=== PATIENT | male | born 1975 | race African-American/Black ===

== ENCOUNTER 2017-12-16 16:24 | Emergency (ER) | payer OTHER ==
[~2017-12-16] VITALS: Ht 180.3 cm; Wt 100.0 kg
[2017-12-16] MEDS ORDERED: IBUPROFEN 800 MG TABLET PO ONE (16:45)
[2017-12-16 16:56] VITALS: BP 129/90
== END 2017-12-16 16:56 | disposition home or self-care (01) ==
LOC: EMS 16:24
DX: S50.12XA Contusion of left forearm, initial encounter (principal); V43.52XA Car driver injured in collision with other type car in traffic accident, initial encounter; Y93.89 Activity, other specified; Y92.89 Other specified places as the place of occurrence of the external cause; Y99.8 Other external cause status
CPT/HCPCS: 99282; 99283

== ENCOUNTER 2019-06-06 14:31 | Emergency (ER) | payer SELFPAY ==
[~2019-06-06] VITALS: Ht 180.3 cm; Wt 100.0 kg
[2019-06-06] MEDS ORDERED: IBUPROFEN 800 MG TABLET PO ONE (15:15)
[2019-06-06] MEDS ORDERED: ACETAMINOPHEN 500 MG TABLET PO ONE (15:15)
[2019-06-06] MEDS ORDERED: HYDROCODONE/ACETAMINOPHEN 5-325 MG TABLET PO ONE (17:00)
[2019-06-06] MEDS ORDERED: LIDOCAINE 1% 10 ML VIAL INJ ONE (17:45)
[2019-06-06] MEDS ORDERED: KETOROLAC TROMETHAMINE 30 MG/ML VIAL IM ONE (19:45)
[2019-06-06 20:09] VITALS: BP 155/80
== END 2019-06-06 20:49 | disposition home or self-care (01) ==
LOC: EMS 14:32
DX: S63.064A Dislocation of metacarpal (bone), proximal end of right hand, initial encounter (principal); M25.521 Pain in right elbow; I10 Essential (primary) hypertension; W22.01XA Walked into wall, initial encounter; Y93.89 Activity, other specified; Y92.89 Other specified places as the place of occurrence of the external cause; Y99.8 Other external cause status
CPT/HCPCS: 26670; 73080; 73110; 73130; 96372; 99284; J1885; J3490

== ENCOUNTER 2022-08-17 01:29 | Emergency (ER) | payer OTHER ==
[~2022-08-17] VITALS: Ht 180.3 cm; Wt 93.2 kg
[2022-08-17] MEDS ORDERED: KETOROLAC TROMETHAMINE 30 MG/ML VIAL IM ONE (02:00)
[2022-08-17] MEDS ORDERED: TRAM-559 PO (03:30)
[2022-08-17] MEDS ORDERED: HYDROCODONE/ACETAMINOPHEN 5-325 MG TABLET PO ONE (03:45)
[2022-08-17 04:08] VITALS: BP 142/75
== END 2022-08-17 04:16 | disposition home or self-care (01) ==
LOC: EMS 01:30
DX: S62.609A Fracture of unspecified phalanx of unspecified finger, initial encounter for closed fracture (principal); I10 Essential (primary) hypertension; F17.210 Nicotine dependence, cigarettes, uncomplicated; X58.XXXA Exposure to other specified factors, initial encounter; Y93.67 Activity, basketball; Y92.89 Other specified places as the place of occurrence of the external cause; Y99.8 Other external cause status
CPT/HCPCS: 99283; 73130; 29130; 96372; J1885

== ENCOUNTER 2022-08-26 21:33 | Inpatient (IN) | payer MEDICAID, OTHER ==
[~2022-08-26] VITALS: Ht 177.8 cm; Wt 80.9 kg
[~2022-08-26 21:33] MED LIST: TRAM-559 PO
[2022-08-26 22:53] LABS: AMPHET/METH SCREEN,URINE POSITIVE (NEGATIVE); BARBITURATE SCREEN, URINE NEGATIVE (NEGATIVE); BENZODIAZEPINES SCREEN,URINE NEGATIVE (NEGATIVE); CANNABINOID SCREEN,URINE NEGATIVE (NEGATIVE); COCAINE SCREEN,URINE NEGATIVE (NEGATIVE); METHADONE SCREEN, URINE NEGATIVE (NEGATIVE); OPIATE SCREEN,URINE NEGATIVE (NEGATIVE); PHENCYCLIDINE SCREEN,URINE NEGATIVE (NEGATIVE)
[2022-08-26 23:06] LABS: BASOPHILS % (AUTO) 0.8 % (0.0-2.0); EOSINOPHILS % (AUTO) 2.5 % (1.0-6.0); HEMATOCRIT 42.7 % (41-53); HEMOGLOBIN 13.3 g/dL (13.5-17.5); LYMPHOCYTES # (AUTO) 3.6 K/uL (1.0-4.8); LYMPHOCYTES % (AUTO) 48.6 % (22.0-44.0); MEAN CORPUSCULAR HEMOGLOBIN 24.9 pg (26.0-34.0); MEAN CORPUSCULAR HGB CONC 31.2 G/dL (31.0-37.0); MEAN CORPUSCULAR VOLUME 80 fL (80-100); MONOCYTES # (AUTO) 0.6 K/uL (0.1-1.0); NEUTROPHILS % (AUTO) 40.1 % (40.0-70.0); PLATELET COUNT (AUTO) 221 K/uL (150-450); RED BLOOD CELL COUNT(AUTO) 5.35 MIL/uL (4.50-5.90); RED CELL DISTRIBUTION WIDTH 14.1 % (11.5-14.5)
[2022-08-26] MEDS ORDERED: LORazepam 2 MG TABLET PO PRN (23:15)
[2022-08-26] MEDS ORDERED: HALOPERIDOL 5 MG TABLET PO PRN (23:15)
[2022-08-26] MEDS ORDERED: ZOLPIDEM TARTRATE 10 MG TABLET PO PRN (23:15)
[2022-08-26 23:19] LABS: ANION GAP 10 mmol/L (8-16); CALCIUM, TOTAL 9.2 mg/dL (8.8-10.5); CARBON DIOXIDE 26 mmol/L (22-29); CHLORIDE 104 mmol/L (98-107); CREATININE 0.93 mg/dL (0.60-1.30); GLOMERULAR FILTR. RATE CALC > 60 mL/min (>60); GLUCOSE,RANDOM 91 mg/dL (70-110); POTASSIUM 3.6 mmol/L (3.5-5.1); SODIUM SERUM 140 mmol/L (136-145); UREA NITROGEN, BLOOD 11 mg/dL (7-18)
[2022-08-26 23:24] LABS: ALANINE AMINOTRANSFERASE 23 U/L (12-78); ALBUMIN 3.7 g/dL (3.4-5.0); ALKALINE PHOSPHATASE 63 U/L (46-116); ASPARTATE AMINOTRANSFERASE 19 U/L (15-37); BILIRUBIN,TOTAL 0.2 mg/dL (0.1-1.0)
[2022-08-26 23:25] LABS: ACETAMINOPHEN < 2 mcg/mL (10-30)
[2022-08-26 23:49] LABS: COVID AG,FIA SOURCE NASAL SWAB
[2022-08-27] MEDS ORDERED: ALBUTEROL SULFATE HFA 90 MCG/PUFF 8 GM INHALER IH PRN (07:15)
[2022-08-27] MEDS ORDERED: IBUPROFEN 400 MG TABLET PO PRN (07:15)
[2022-08-27] MEDS ORDERED: ACETAMINOPHEN 325 MG TABLET PO PRN (07:15)
[2022-08-27] MEDS ORDERED: MAG HYDROX/AL HYDROX/SIMETH ES 30 ML SUSPENSION UDCUP PO PRN (07:15)
[2022-08-27] MEDS ORDERED: PETROLATUM,WHITE 28 GM JELLY TP PRN (07:15)
[2022-08-27] MEDS ORDERED: NICOTINE 14 MG/24 HOUR PATCH TD PRN (07:15)
[2022-08-27] MEDS ORDERED: GuaiFENesin/D-METHORPHAN [SUGAR-FREE] 200-20MG/10 ML SYRUP UDCUP PO PRN (07:15)
[2022-08-27] MEDS ORDERED: MAGNESIUM HYDROXIDE SUSPENSION 30 ML UDCUP PO PRN (07:15)
[2022-08-27] MEDS ORDERED: LOPERAMIDE HCL 2 MG CAPSULE PO PRN (07:15)
[2022-08-27] MEDS ORDERED: CloNIDine HCL 0.1 MG TABLET PO PRN (07:15)
[2022-08-27] MEDS ORDERED: ONDANSETRON HCL 4 MG TABLET PO PRN (07:15)
[2022-08-27] MEDS ORDERED: DOCUSATE SODIUM 100 MG CAPSULE PO PRN (07:15)
[2022-08-27 08:06] VITALS: BP 137/96
[2022-08-28 07:00] LABS: BASOPHILS % (AUTO) 0.8 % (0.0-2.0); EOSINOPHILS % (AUTO) 3.6 % (1.0-6.0); HEMATOCRIT 46.4 % (41-53); HEMOGLOBIN 14.6 g/dL (13.5-17.5); LYMPHOCYTES # (AUTO) 2.8 K/uL (1.0-4.8); LYMPHOCYTES % (AUTO) 49.2 % (22.0-44.0); MEAN CORPUSCULAR HGB CONC 31.5 G/dL (31.0-37.0); MEAN CORPUSCULAR VOLUME 80 fL (80-100); MONOCYTES # (AUTO) 0.6 K/uL (0.1-1.0); NEUTROPHILS % (AUTO) 35.4 % (40.0-70.0); PLATELET COUNT (AUTO) 221 K/uL (150-450); RED BLOOD CELL COUNT(AUTO) 5.83 MIL/uL (4.50-5.90); RED CELL DISTRIBUTION WIDTH 13.8 % (11.5-14.5)
[2022-08-28 07:31] LABS: ALANINE AMINOTRANSFERASE 20 U/L (12-78); ALBUMIN 3.5 g/dL (3.4-5.0); ALKALINE PHOSPHATASE 62 U/L (46-116); ANION GAP 5 mmol/L (8-16); ASPARTATE AMINOTRANSFERASE 15 U/L (15-37); BILIRUBIN,TOTAL 0.3 mg/dL (0.1-1.0); CALCIUM, TOTAL 9.1 mg/dL (8.8-10.5); CARBON DIOXIDE 28 mmol/L (22-29); CHLORIDE 105 mmol/L (98-107); CREATININE 0.91 mg/dL (0.60-1.30); GLOMERULAR FILTR. RATE CALC > 60 mL/min (>60); GLUCOSE,RANDOM 93 mg/dL (70-110); POTASSIUM 4.2 mmol/L (3.5-5.1); SODIUM SERUM 138 mmol/L (136-145); THYROID STIMULATING HORMONE 0.69 uIU/mL (0.36-3.74); UREA NITROGEN, BLOOD 10 mg/dL (7-18)
[2022-08-28 07:57] LABS: HEMOGLOBIN A1C 5.6 % (3.8-5.6)
[2022-08-28 08:31] LABS: CHOL/HDL RATIO 2.2 (4.2-7.3); CHOLESTEROL 133 mg/dL (131-200); HDL CHOLESTEROL 60 mg/dL (40-60); LDL CHOL (CALC.) 55 mg/dL (0-130); TRIGLYCERIDES 92 mg/dL (15-150)
[2022-08-28 08:51] VITALS: BP 152/95
[2022-08-28] MEDS ORDERED: LOSARTAN POTASSIUM 25 MG TABLET PO SCH (11:30)
[2022-08-28] MEDS ORDERED: LOSA-381 PO (13:22)
== END 2022-08-28 13:46 | disposition home or self-care (01) | DRG 751 ==
LOC: EMS 21:35 → 3EC 08-27 00:37
PROVIDERS: ADMIT Psychiatry & Neurology Psychiatry; ATTEND Psychiatry & Neurology Psychiatry
DX: F32.3 Major depressive disorder, single episode, severe with psychotic features (principal); R45.851 Suicidal ideations; F10.229 Alcohol dependence with intoxication, unspecified; F15.10 Other stimulant abuse, uncomplicated; G47.00 Insomnia, unspecified; I10 Essential (primary) hypertension; Z20.822 Contact with and (suspected) exposure to COVID-19; D64.9 Anemia, unspecified; Y90.5 Blood alcohol level of 100-119 mg/100 ml; Z59.00 Homelessness unspecified; Z87.891 Personal history of nicotine dependence; Z88.8 Allergy status to other drugs, medicaments and biological substances; Z71.51 Drug abuse counseling and surveillance of drug abuser
CPT/HCPCS: 80053; 80061; 80307; 83036; 84443; 85025; 93005; 99285; G0480; G0481

== ENCOUNTER 2023-04-29 22:41 | Emergency (ER) | payer MEDICAID, OTHER ==
[~2023-04-29] VITALS: Ht 180.3 cm; Wt 85.9 kg
[~2023-04-29 22:41] MED LIST changes: +LOSA-381 PO; -TRAM-559 PO
[2023-04-29 22:43] VITALS: BP 145/116; PULSE 100; RESP 16; TEMP 98.2
[2023-04-29] MEDS ORDERED: ACETAMINOPHEN 500 MG TABLET PO ONE (22:45)
[2023-04-29] MEDS ORDERED: BACITRACIN 0.9 GM PACKET OINTMENT TP ONE (22:45)
[2023-04-29] MEDS ORDERED: PERTUSS(ACELL),DIPH,TET VAC/PF 0.5 ML SYRINGE IM. ONE (22:45)
== END 2023-04-30 00:30 | disposition left against medical advice (07) ==
LOC: EMS 22:41
DX: S11.91XA Laceration without foreign body of unspecified part of neck, initial encounter (principal); F10.20 Alcohol dependence, uncomplicated; I10 Essential (primary) hypertension; F17.210 Nicotine dependence, cigarettes, uncomplicated; Z91.040 Latex allergy status; Y04.8XXA Assault by other bodily force, initial encounter; Y93.89 Activity, other specified; Y92.89 Other specified places as the place of occurrence of the external cause; Y99.8 Other external cause status
CPT/HCPCS: 12002; 70450; 71045; 72125; 90471; 90715; 99285

== ENCOUNTER 2023-06-13 05:51 | Emergency (ER) | payer OTHER ==
[~2023-06-13] VITALS: Ht 180.3 cm; Wt 93.2 kg
[2023-06-13 05:56] VITALS: BP 139/95; PULSE 96; RESP 18; TEMP 97.9
[2023-06-13] MEDS ORDERED: PERCT PO (06:24)
[2023-06-13] MEDS ORDERED: IBUP-1492 PO (06:24)
[2023-06-13] MEDS ORDERED: METH-659 PO (06:24)
[2023-06-13] MEDS: KETOROLAC TROMETHAMINE 60 MG/2 ML VIAL IM ONE (06:25)
[2023-06-13] MEDS: METHOCARBAMOL 500 MG TABLET PO ONE (06:26)
== END 2023-06-13 06:28 | disposition home or self-care (01) ==
LOC: EMS 05:52
DX: S39.012A Strain of muscle, fascia and tendon of lower back, initial encounter (principal); M25.561 Pain in right knee; R07.81 Pleurodynia; F17.210 Nicotine dependence, cigarettes, uncomplicated; F10.20 Alcohol dependence, uncomplicated; I10 Essential (primary) hypertension; Z91.040 Latex allergy status; X58.XXXA Exposure to other specified factors, initial encounter; Y93.89 Activity, other specified; Y92.89 Other specified places as the place of occurrence of the external cause; Y99.8 Other external cause status; Y90.9 Presence of alcohol in blood, level not specified
CPT/HCPCS: 99283; 96372; J1885

== ENCOUNTER 2023-11-17 15:03 | Emergency (ER) | payer OTHER ==
[~2023-11-17] VITALS: Ht 180.3 cm; Wt 75.0 kg
[~2023-11-17 15:03] MED LIST changes: +IBUP-1492 PO; +METH-659 PO; +PERCT PO
[2023-11-17 15:14] VITALS: BP 136/93; PULSE 98; RESP 18; TEMP 98
[2023-11-17] MEDS ORDERED: IBUP-1554 PO (16:40)
[2023-11-17] MEDS ORDERED: PENI500T2 PO (16:40)
[2023-11-17] MEDS ORDERED: HYDR-4062 PO (16:40)
[2023-11-17] MEDS: HYDROCODONE/ACETAMINOPHEN 5-325 MG TABLET PO ONE (16:42)
[2023-11-17] MEDS: IBUPROFEN 600 MG TABLET PO ONE (16:42)
== END 2023-11-17 16:55 | disposition home or self-care (01) ==
LOC: EMS 15:05
DX: K04.7 Periapical abscess without sinus (principal); F10.20 Alcohol dependence, uncomplicated; I10 Essential (primary) hypertension; F17.210 Nicotine dependence, cigarettes, uncomplicated; Z91.040 Latex allergy status
CPT/HCPCS: 99283

== ENCOUNTER 2023-12-11 15:16 | Emergency (ER) | payer OTHER ==
[~2023-12-11] VITALS: Ht 180.3 cm; Wt 93.1 kg
[~2023-12-11 15:16] MED LIST changes: +HYDR-4062 PO; -IBUP-1492 PO; +IBUP-1554 PO; -LOSA-381 PO; -METH-659 PO; +PENI500T2 PO; -PERCT PO
[2023-12-11 15:25] VITALS: TEMP 97.7
[2023-12-11] MEDS: ONDANSETRON HCL 4 MG/2 ML VIAL IVP ONE (16:13)
[2023-12-11] MEDS: HYDROmorphone HCL 2 MG/ML SYRINGE IVP ONE ×2 (16:13→18:43)
[2023-12-11] MEDS: SODIUM CHLORIDE 0.9% 1,000 ML IV ONE (16:16)
[2023-12-11 16:50] LABS: BASOPHILS % (AUTO) 0.3 % (0.0-2.0); EOSINOPHILS % (AUTO) 1.8 % (1.0-6.0); HEMATOCRIT 40.2 % (41-53); HEMOGLOBIN 12.6 g/dL (13.5-17.5); LYMPHOCYTES # (AUTO) 2.1 K/uL (1.0-4.8); MEAN CORPUSCULAR HEMOGLOBIN 24.7 pg (26.0-34.0); MEAN CORPUSCULAR HGB CONC 31.5 G/dL (31.0-37.0); MEAN CORPUSCULAR VOLUME 79 fL (80-100); MONOCYTES # (AUTO) 0.8 K/uL (0.1-1.0); MONOCYTES % (AUTO) 10.6 % (2.0-9.0); NEUTROPHILS # (AUTO) 4.5 K/uL (1.8-7.7); NEUTROPHILS % (AUTO) 59.3 % (40.0-70.0); PLATELET COUNT (AUTO) 204 K/uL (150-450); RED BLOOD CELL COUNT(AUTO) 5.11 MIL/uL (4.50-5.90); RED CELL DISTRIBUTION WIDTH 14.1 % (11.5-14.5); WHITE BLOOD COUNT (AUTO) 7.6 K/uL (4.5-11.0)
[2023-12-11 17:08] LABS: ANION GAP 6 mmol/L (8-16); CALCIUM, TOTAL 8.1 mg/dL (8.8-10.5); CARBON DIOXIDE 28 mmol/L (22-29); CHLORIDE 104 mmol/L (98-107); CREATININE 1.05 mg/dL (0.60-1.30); GLOMERULAR FILTR. RATE CALC > 60 mL/min (>60); GLUCOSE,RANDOM 103 mg/dL (70-110); POTASSIUM 3.7 mmol/L (3.5-5.1); SODIUM SERUM 138 mmol/L (136-145); UREA NITROGEN, BLOOD 18 mg/dL (7-18)
[2023-12-11] MEDS: LIDOCAINE 1% 10 ML VIAL SQ ONE (18:26)
[2023-12-11] MEDS: BACITRACIN 0.9 GM PACKET OINTMENT TP ONE (18:27)
[2023-12-11] MEDS: PERTUSS(ACELL),DIPH,TET/PF 0.5 ML SYRINGE [ADULT] IM. ONE (18:30)
[2023-12-11] MEDS: KETOROLAC TROMETHAMINE 30 MG/ML VIAL IVP ONE (18:43)
[2023-12-11] MEDS: CeFAZolin 2 GM/DEXTROSE 50 ML IV ONE (20:12)
[2023-12-11] MEDS ORDERED: POLY119P3 PO (22:31)
[2023-12-11] MEDS ORDERED: BACI28.410 TP (22:31)
[2023-12-11] MEDS ORDERED: HYDR-4072 PO (22:31)
[2023-12-11] MEDS ORDERED: CEPH-558 PO (22:31)
[2023-12-11 22:53] VITALS: BP 138/92; PULSE 65; RESP 16
== END 2023-12-11 22:54 | disposition home or self-care (01) ==
LOC: EMS 15:16
DX: S81.012A Laceration without foreign body, left knee, initial encounter (principal); S50.811A Abrasion of right forearm, initial encounter; M25.00 Hemarthrosis, unspecified joint; F10.20 Alcohol dependence, uncomplicated; I10 Essential (primary) hypertension; F17.210 Nicotine dependence, cigarettes, uncomplicated; Z91.040 Latex allergy status; W01.0XXA Fall on same level from slipping, tripping and stumbling without subsequent striking against object, initial encounter; Y93.89 Activity, other specified; Y92.89 Other specified places as the place of occurrence of the external cause; Y99.8 Other external cause status
CPT/HCPCS: 99285; 96365; 96375; 73700; 96361; 80048; 85025; 36415; 73552; 73562; 90715; 90471; 12001; J1170; J1885; J2405; J3490; J7030; J0690